=== PATIENT | female | born 1940 | race Caucasian/White ===

== ENCOUNTER → 2022-05-06 10:46 | Outpatient (CLI) | payer MEDICARE, OTHER, SELFPAY ==
--- NOTE | 2022-05-06 | DI.MRI.S_ITS ---
PROCEDURE: MR KNEE RT WO CON INDICATIONS: PAIN IN RT KNEE/EFFUSION TECHNIQUE: Noncontrast sagittal PD fast spin echo and T2 fast spin echo with fat saturation, sagittal 3-D FLASH with fat saturation; coronal T1 spin echo and PD fast spin echo with fat saturation, and axial PD fast spin echo with fat saturation through the knee. COMPARISON: None. FINDINGS: Image quality: Excellent. Menisci: Peripheral displacement of medial meniscus bowing medial collateral ligament is seen. Complex tear involving posterior horn of medial meniscus is noted extending to both superior and inferior articulating surfaces. There is suggestion of torn posterior medial meniscal root ligament. The lateral meniscus is intact. Cruciate ligaments: The anterior cruciate ligament is mildly thickened with intrasubstance T2 hyperintense signal. The posterior cruciate ligament is intact. Medial structures: The medial collateral ligament appears thickened with surrounding soft tissue edema. The posterior oblique ligament, semimembranosus tendon insertions, oblique popliteal ligament, and meniscocapsular junction appear intact. Visualized portions of the pes anserinus tendons appear normal. No abnormal bursal fluid. Lateral structures: The lateral collateral ligament, long and short heads of the biceps femoris tendon appear intact. The popliteus tendon appears normal; the popliteofibular ligament appears intact. Iliotibial band appears normal. Anterior structures: The quadriceps and patellar tendons appear intact. Patellar alignment is normal. No femoral trochlear dysplasia or ventral trochlear prominence. No edema in the infrapatellar fat pad. 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 There is an 8 mm osteochondral injury involving weight-bearing portion of medial femoral condyle with moderate surrounding edema. No fracture or dislocation. Joint space: There is moderate knee joint fluid. There is a 2.9 x 1.8 x 3.9 cm Bill's cyst. Normal appearing synovial plicae are incidentally noted. IMPRESSION: 1. Complex tear involving posterior horn of medial meniscus extending to both superior and inferior articulating surfaces. Torn posterior medial meniscal root ligament. Lateral meniscus is intact. 2. Sprain/low-grade intrasubstance partial-thickness tear involving anterior cruciate ligament. No ACL rupture. PCL is intact. 3. Low to moderate grade MCL sprain. 4. [id number] tricompartmental osteoarthritis and chondromalacia most notably in medial femoral tibial compartment with osteochondral injury involving weight-bearing portion of medial femoral condyle as above. No fracture or dislocation. 5. Moderate joint effusion, no gross loose bodies. Bill's cyst as above. Dictated by: Dung Siddiqui M.D. on 05/06/2022 at 13:59 Approved by: Dung Siddiqui M.D. on 05/06/2022 at 14:06
== END ==
PROVIDERS: PCP Physician Assistant Medical; Referring Provider Physician Assistant Medical; Visit Provider Physician Assistant Medical
DX: S83.511A Sprain of anterior cruciate ligament of right knee, initial encounter (principal); S83.231A Complex tear of medial meniscus, current injury, right knee, initial encounter; M17.11 Unilateral primary osteoarthritis, right knee; M71.21 Synovial cyst of popliteal space [Baker], right knee; M94.261 Chondromalacia, right knee; M25.561 Pain in right knee; M25.461 Effusion, right knee
CPT/HCPCS: 73721